=== PATIENT | male | born 2000 | race Caucasian/White ===

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

== ENCOUNTER 2020-05-31 17:20 | Emergency (ER) | payer SELFPAY ==
[2020-05-31] MEDS ORDERED: KETOROLAC TROMETHAMINE 60 MG/2 ML SDV IM ONE (18:22)
--- NOTE | 2020-05-31 18:34 | ER Document Report ---
HPI - HPI Patient complains to provider of: Left-sided chest pain Time Seen by Provider: 05/31/20 18:21 Notes: 20-year-old male to the emergency department with complaints of left-sided chest pain that began yesterday. He states it started as he was walking outside to go smoke a cigarette. He states that it hurts every time he moves or when he takes a big deep breath. He states it is stabbing in nature. He states he is took some [id number] pain medicine without any relief. He denies any fevers or chills. Denies any sore throat, loss of taste, possible COVID-19 exposure. He is a smoker but he does not have a history of hypertension, diabetes, hyperl ipidemia. There is no family history of coronary artery disease. He has not recently been traveling. He denies any leg pain or history of DVT. He has not recently had surgery. - ROS Systems Reviewed and Negative: Yes All other systems reviewed and negative - CONSTITUTIONAL Constitutional: DENIES: Fever, Chills - EENT EENT: DENIES: Sore Throat, Ear Pain, Congestion - NEURO Neurology: DENIES: Headache - CARDIOVASCULAR Cardiovascular: REPORTS: Chest pain - See HPI - RESPIRATORY Respiratory: DENIES: Coughing Notes: Hurts to breathe - GASTROINTESTINAL Gastrointestinal: DENIES: Abdominal Pain, Nausea, Patient vomiting, Diarrhea - MUSCULOSKELETAL Musculoskeletal: DENIES: Extremity pain, Back Pain, Neck Pain - DERM Skin Color: Normal Skin Problems: None Past Medical History - General Information source: Patient - Social History Smoking Status: Current Every Day Smoker Frequency of alcohol use: Occasional Drug Abuse: None Family History: Reviewed & Not Pertinent. denies: CAD - Past Medical History Cardiac Medical History: Denies: Hx Coronary Artery Disease, Hx Heart Attack, Hx Hypertension Pulmonary Medical History: Denies: Hx Asthma, Hx Bronchitis, Hx COPD, Hx Pneumonia Neurological Medical History: Denies: Hx Cerebrovascular Accident, Hx Seizures Musculoskeletal Medical History: Denies Hx Arthritis - Immunizations Hx Diphtheria, Pertussis, Tetanus Vaccination: No Vertical Provider Document - CONSTITUTIONAL Agree With Documented VS: Yes Exam Limitations: No Limitations General Appearance: WD/WN, No Apparent Distress - INFECTION CONTROL TRAVEL OUTSIDE OF THE [place] IN LAST 30 DAYS: No - HEENT HEENT: Atraumatic, Normocephalic, PERRLA - NECK Neck: Normal Inspection, Supple - RESPIRATORY Respiratory: Breath Sounds Normal, No Respiratory Distress. negative: Rales, Rh onchi, Wheezing Notes: There is tenderness to palpation over the left side of the chest wall on the anterior axillary line at the rib levels of 6,7,8,9. Patient also has noted pain with big deep breath. - CARDIOVASCULAR Cardiovascular: negative: Regular Rate, Regular Rhythm, No Murmur - GI/ABDOMEN Gastrointestinal: No Organomegaly. negative: Abdomen Soft, Abdomen Non-Tender - BACK Back: Normal Inspection Notes: Nontender to palpation over the lumbar, thoracic, cervical spine. There is no step-off or deformity - MUSCULOSKELETAL/EXTREMETIES Musculoskeletal/Extremeties: MAEW, FROM - NEURO Level of Consciousness: Awake, Alert, Appropriate Motor/Sensory: No Motor Deficit, No Sensory Deficit - DERM Integumentary: Warm, Dry, No Rash Course - Re-evaluation Re-evalutation: Impression: Musculoskeletal chest pain. EKG and chest x-ray are reassuring. Patient has a heart score of 1. Plan to discharge home with NSAIDs, incentive spirometer, muscle relaxant. I have encouraged the patient to return if any worsening symptoms. - Vital Signs Vital signs: Temp Pulse Resp BP Pulse Ox 98.2 F 80 16 146/56 H 98 05/31/20 17:34 05/31/20 17:34 05/31/20 17:34 05/31/20 17:34 05/31/20 17:34 - Diagnostic Test Radiology reviewed: Image reviewed, Reports reviewed - EKG Interpretation by Me Additional EKG results interpreted by me: 05/31/20 Rate: 87, rhythm: Sinus, interpretation: No STEMI, no ST changes, no comparison. Discharge - Discharge Clinical Impression: Musculoskeletal chest pain Condition: Stable Disposition: HOME, SELF-CARE Instructions: Chest Wall Pain ([facility]) Additional Instructions: Take medicines as prescribed. Return if worsening symptoms. No lifting greater than 15 lbs. Follow up with primary care. Prescriptions: Ketorolac Tromethamine [Toradol 10 mg Tablet] 10 mg PO Q8HP PRN #24 tablet PRN Reason: Methocarbamol [Robaxin 500 mg Tablet] 500 mg PO QID PRN #20 tablet PRN Reason: Forms: Return to Work Referrals: AMADEO URBAN FNP-C [NURSE PRACTITIONER] - Follow up in 3-5 days
--- NOTE | 2020-05-31 18:50 | EKG REPORT ---
SEVERITY:- NORMAL ECG - SINUS RHYTHM : Confirmed by: Shane Fish MD 31-May-2020 18:49:26
--- NOTE | 2020-05-31 18:50 | RADIOLOGY REPORT (SQ) ---
EXAM DESCRIPTION: CHEST 2 VIEWS IMAGES COMPLETED DATE/TIME: 05/31/2020 6:32 pm REASON FOR STUDY: chest pain with movement and deep breath COMPARISON: 04/01/2015 EXAM PARAMETERS: NUMBER OF VIEWS: two views TECHNIQUE: Digital Frontal and Lateral radiographic views of the chest acquired. RADIATION DOSE: NA LIMITATIONS: none FINDINGS: LUNGS AND PLEURA: No opacities, masses or pneumothorax. No pleural effusion. MEDIASTINUM AND HILAR STRUCTURES: No masses or contour abnormalities. HEART AND VASCULAR STRUCTURES: Heart normal size. No evidence for failure. BONES: No acute findings. HARDWARE: None in the chest. OTHER: No other significant finding. IMPRESSION: NO ACUTE RADIOGRAPHIC FINDING IN THE CHEST. TECHNICAL DOCUMENTATION: JOB ID: [id number] [employer]- All Rights Reserved Reading location - IP/workstation name: [email or web address]
[2020-05-31 19:20] VITALS: BP 140/55
== END 2020-05-31 19:45 | disposition home or self-care (01) ==
LOC: ER 17:20
DX: R07.89 Other chest pain (principal); F17.210 Nicotine dependence, cigarettes, uncomplicated; I10 Essential (primary) hypertension; E11.9 Type 2 diabetes mellitus without complications; E78.5 Hyperlipidemia, unspecified
CPT/HCPCS: 93005; 99284; 96372; 71046; 93010; J1885